=== PATIENT | female | born 1980 | race Caucasian/White ===

== ENCOUNTER 2017-01-07 08:21 | Emergency (ER) | payer OTHER ==
[2017-01-07 08:28] VITALS: BP 125/92; TEMP 99.3; BMI 28.0
[2017-01-07] MEDS ORDERED: TORADOL IM STA (08:32)
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
--- NOTE | 2017-01-07 10:10 | CT ---
EXAM: CT of the lumbar spine without contrast History: Back trauma. Comparison: Lumbar spine CT 04/04/2016 Technique: Multiplanar CT images through the lumbar spine were obtained without the administration of IV contrast Findings: No acute fracture or subluxation. Disc space heights are relatively preserved. Bony spinal canal i s not significantly compromised. No significant bony neural foraminal narrowing. Impression: No acute osseous abnormality of the lumbar spine.
--- NOTE | 2017-01-07 10:10 | CT ---
EXAM: CT chest without contrast. HISTORY: Initial presentation for left-sided rib pain following a fall. COMPARISON: None available. TECHNIQUE: Multiple axial images of the chest were obtained without intravenous contrast. Images w ere reformatted in the sagittal and coronal planes. FINDINGS: No anterior mediastinal fluid collections are seen. Heart size is normal. There is no p ericardial effusion. Ascending thoracic aorta measures approximately 3.9 cm maximum diameter. No p eriaortic hemorrhage identified. Evaluation for lymphadenopathy is limited due to lack of intraveno us contrast. Linear subsegmental atelectasis noted in the left lower lobe. A 0.3 cm right lower lobe nodule note d on axial image 42. Lungs are otherwise clear. No pleural effusion or pneumothorax identified. T here is mild superior endplate compression deformity of this T8 vertebral body without retropulsion. Minimal superior endplate compression deformity of L2 vertebral body noted with smooth margins. N o left-sided rib fracture identified. IMPRESSION: 1. Mild age indeterminate T8 superior endplate compression deformity. Consider MRI if further eval uation is needed. 2. No left rib fracture or acute intrathoracic abnormality. Mild left lower lobe subsegmental atel ectasis. 3. Right lower lobe micronodule which requires followup chest CT in 3 months. 4. Ascending thoracic aorta measures 3.9 cm diameter.
--- NOTE | 2017-01-07 10:25 | ED.PDOC ---
General ED Provider: Dr. KELLEY COOPER Chief Complaint: Fall Stated Complaint: neck back pain after a fall Time Seen by Physician: 08:30 (fell over a bail of hay) Mode of Arrival: Walk-In Information Source: Patient Exam Limitations: No limitations Primary Care Provider: HANSA DWYER Nursing and Triage Documentation Reviewed and Agree: Yes (fall today) Trauma/Injury Complaint Exam - Trauma Complaint/Exam Location of Pain or Injury: Reports: Other (back , neck) Mechanism of Injury: Reports: Fall Onset/Duration: this am Symptoms Are: Still present Timing of Treatment: Immediate Initial Severity: Moderate Current Severity: Moderate Character: Reports: Pressure Aggravating: Reports: Movement Alleviating: Reports: Rest Associated Signs and Symptoms: Reports: Bruising Related History: Reports: Similar episode : No Penetrating Injury Risk Factors: Reports: None Related Surgical History: Reports: None Nexus Low Risk Criteria: No evidence of intoxicat., No Altered LOC, No focal neuro deficit, No distracting injuries Glascow Coma Scale (see protocol): 15 Differential Diagnoses: Fracture, Sprain, Strain Review of Systems - Review Of Systems Constitutional: Reports: No symptoms Eyes: Reports: No symptoms Ears, Nose, Mouth, Throat: Reports: No symptoms Respiratory: Reports: No symptoms Cardiac: Reports: No symptoms GI: Reports: No symptoms : Reports: No symptoms Musculoskeletal: Reports: Back pain, Neck pain Skin: Reports: No symptoms Neurological: Reports: No symptoms Endocrine: Reports: No symptoms Hematologic/Lymphatic: Reports: No symptoms All Other Systems: Reviewed and Negative Past Medical History - Past Medical History Previously Healthy: Yes Endocrine: Reports: None Cardiovascular: Reports: None Respiratory: Reports: None Hematological: Reports: None Gastrointestinal: Reports: None Genitourinary: Reports: None Neuro/Psych: Reports: None Musculoskeletal: Reports: None Cancer: Reports: None Last Menstrual Period: NA - Surgical History General Surgical History: Reports: Hysterectomy, Appendectomy, Cholecystectomy - Family History Family History: Reports: Unknown - Social History Smoking Status: Current every day smoker, Heavy tobacco smoker Hx Substance Use: No Alcohol Screening: Occasionally - Immunizations Tetanus Shot up to Date: Yes Physical Exam - Physical Exam Appearance: Well-appearing, No pain distress, Well-nourished Eyes: JORGE LUIS, EOMI, Conjunctiva clear ENT: Ears normal, Nose normal, Oropharynx normal Respiratory: Airway patent, Breath sounds clear, Breath sounds equal, Respirations nonlabored Cardiovascular: RRR, Pulses normal, No rub, No murmur GI/: Soft, Nontender, No masses, Bowel sounds normal, No Organomegaly Musculoskeletal: Normal strength, ROM intact, No edema, No calf tenderness Skin: Warm, Dry, Normal color Neurological: Sensation intact, Motor intact, Reflexes intact, Cranial nerves intact, Alert, Oriented Psychiatric: Affect appropriate, Mood appropriate Interpretation - Radiology Interpretation Radiology Interpretation By: Radiologist Radiology Results: Positive (compression fracture of t8) Critical Care Note - Critical Care Note Total Time (mins): 0 Course - Course Orders, Labs, Meds: Orders Category Date Time Status Ketorolac Tromethamine [Toradol] MEDS 01/07/17 08:32 Discontinued 60 mg IM ONCE STA CT CERVICAL SPINE W/O CONTRAST Stat RADS 01/07/17 08:[address] CHEST W/O CONTRAST Stat RADS 01/07/17 08:[address] LUMBAR SPINE W/O CONTRAST Stat RADS 01/07/17 08:31 Completed Medications Discontinued Medications Generic Name Dose Route Start Last Admin Trade Name Freq PRN Reason Stop Dose Admin Ketorolac Tromethamine 60 mg 01/07/17 08:32 01/07/17 08:38 Toradol IM 01/07/17 08:33 60 mg ONCE STA Administration Vital Signs: Temp Pulse Resp BP Pulse Ox 01/07/17 08:23 99.3 F 113 H 20 125/92 H 98 Departure - Departure Time of Disposition: 10:25 Disposition: HOME SELF-CARE Discharge Problem: Neck pain, Wedge compression fracture of T8 vertebra Lumbar back pain Qualifiers: Chronicity: unspecified Instructions: Acute Low Back Pain (ED), Cervical Sprain (ED), Neck Pain (ED), Acute Neck Pain (ED), Thoracolumbar Fracture (ED) Condition: Good Pt referred to PMD for follow-up: No Additional Instructions: Please call your Family Physician as soon as possible to schedule a follow-up appointment. Allergies/Adverse Reactions: Allergies metoclopramide HCl [From Reglan] Adverse Reaction (Verified 01/07/17 08:23) naproxen Adverse Reaction (Verified 01/07/17 08:23) Home Medications: Ambulatory Orders Dicyclomine HCl [Bentyl] 20 mg PO TID 04/04/16 Estrogens, Conjugated [Premarin] 1.25 mg PO DAILY 04/04/16 Ranitidine HCl [Zantac] 300 mg PO BID 04/04/16 Nabumetone [Relafen] 500 mg PO BIDWM #6 tablet 01/07/17
== END 2017-01-07 11:12 | disposition home or self-care (01) ==
LOC: ED 08:21
DX: S22.060A Wedge compression fracture of T7-T8 vertebra, initial encounter for closed fracture (principal); M54.2 Cervicalgia; M54.5 Low back pain; F17.210 Nicotine dependence, cigarettes, uncomplicated; W01.0XXA Fall on same level from slipping, tripping and stumbling without subsequent striking against object, initial encounter
CPT/HCPCS: 96372; 99283

== ENCOUNTER 2017-04-27 13:42 | Emergency (ER) ==
[2017-04-27 13:51] VITALS: BP 125/83; TEMP 98.6; BMI 26.6
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
--- NOTE | 2017-04-27 14:21 | DI ---
Exam: Three views right shoulder Clinical indication: Fall with right shoulder pain and limited abduction. Findings: There are no fractures, dislocations or other significant bony abnormality. The visualized ribs are within normal limits. The visualized pulmonary parenchyma is unremarkable. Impression: Negative radiographs of the right shoulder.
--- NOTE | 2017-04-27 14:21 | DI ---
Exam: Two views right elbow. Clinical indication: Fall with right elbow pain. Findings: There is no right elbow effusion. There are no fractures, dislocations or other significant bony ab normalities. Impression: Negative radiographs of the right elbow.
--- NOTE | 2017-04-27 14:23 | DI ---
Exam: Three views of the right foot Clinical indication: Fall with right foot pain. Findings: There is no gross soft tissue abnormality. There are no fractures, dislocations, physeal injuries o r other significant bony abnormality. Impression: Negative radiographs of the right foot.
== END 2017-04-27 14:41 | disposition home or self-care (01) ==
LOC: ED 13:42
DX: S90.31XA Contusion of right foot, initial encounter (principal); S40.211A Abrasion of right shoulder, initial encounter; S50.311A Abrasion of right elbow, initial encounter; V86.99XA Unspecified occupant of other special all-terrain or other off-road motor vehicle injured in nontraffic accident, initial encounter; F17.210 Nicotine dependence, cigarettes, uncomplicated
CPT/HCPCS: 99283

== ENCOUNTER 2017-08-01 08:45 | Emergency (ER) ==
[2017-08-01 08:53] VITALS: BP 119/85; TEMP 98.1; BMI 25.1
[2017-08-01] MEDS ORDERED: TORADOL IM STA (09:02)
--- NOTE | 2017-08-01 09:05 | ED.PDOC ---
General ED Provider: Dr. MIMA LANGLEY Chief Complaint: Foot Pain/Injury Stated Complaint: Patients left foot was stepped by her horse yesterday, ever since its been hurting to walk and bend. has balckened area. Time Seen by Physician: 09:03 Mode of Arrival: Walk-In Information Source: Patient Primary Care Provider: SHAYNA CHANG Nursing and Triage Documentation Reviewed and Agree: Yes Musculoskeletal Complaint Exam - Ankle/Foot Complaint/Exam Location of Injury: Reports: Left Mechanism of Injury: Reports: Trauma Symptoms Are: Reports: Still present Onset of Pain: Reports: Immediate Initial Severity: Moderate Current Severity: Moderate Location: Reports: Discrete Character: Reports: Aching Alleviating: Reports: None Aggravating: Reports: Movement, Weight bearing Able to Bear Weight: Yes Associated Signs and Symptoms: Reports: Bruising. Denies: Swelling, Redness, Fever, Weakness, Numbness, Tingling Gout Risk Factors: Reports: None Related Surgical History: Reports: None Lower Extremity Findings: Present: Ecchymosis. Absent: Abnormal contour, Rotation Achilles Tendon Abnormality: No Tenderness: Present: Lateral malleolus, Midfoot, Metatarsals Limited Range of Motion: Present: Inversion, Eversion, Dorsiflexion, Plantarflexion Differential Diagnosis: Closed Fracture, Sprain Review of Systems - Review Of Systems Constitutional: Reports: No symptoms Eyes: Reports: No symptoms Ears, Nose, Mouth, Throat: Reports: No symptoms Respiratory: Reports: No symptoms Cardiac: Reports: No symptoms GI: Reports: No symptoms : Reports: No symptoms Musculoskeletal: Reports: Joint pain, Muscle pain Skin: Reports: No symptoms Neurological: Reports: No symptoms Endocrine: Reports: No symptoms Hematologic/Lymphatic: Reports: No symptoms All Other Systems: Reviewed and Negative Past Medical History - Past Medical History Previously Healthy: Yes Endocrine: Reports: None Cardiovascular: Reports: None Respiratory: Reports: None Hematological: Reports: None Gastrointestinal: Reports: GERD, Other (IBS) Genitourinary: Reports: None Neuro/Psych: Reports: None Musculoskeletal: Reports: None Cancer: Reports: Other (endometrial Ca) Last Menstrual Period: hysterectomy - Surgical History General Surgical History: Reports: Hysterectomy, Appendectomy, Cholecystectomy - Family History Family History: Reports: Unknown - Social History Smoking Status: Current every day smoker, Light tobacco smoker Smoking Cessation Counseling Time: > 3 min - 10 min Hx Substance Use: No Alcohol Screening: Occasionally Physical Exam - Physical Exam Appearance: Well-appearing, No pain distress, Well-nourished Eyes: JORGE LUIS, EOMI, Conjunctiva clear ENT: Ears normal, Nose normal, Oropharynx normal Respiratory: Airway patent, Breath sounds clear, Breath sounds equal, Respirations nonlabored Cardiovascular: RRR, Pulses normal, No rub, No murmur GI/: Soft, Nontender, No masses, Bowel sounds normal, No Organomegaly Musculoskeletal: No edema, No calf tenderness, Limited ROM, Limited strength Skin: Warm, Dry, Normal color Neurological: Sensation intact, Motor intact, Reflexes intact, Cranial nerves intact, Alert, Oriented Psychiatric: Affect appropriate, Mood appropriate Interpretation - Radiology Interpretation Radiology Interpretation By: Radiologist Radiology Results: Negative Critical Care Note - Critical Care Note Total Time (mins): 0 Course - Course Orders, Labs, Meds: Orders Category Date Time Status Ketorolac Tromethamine [Toradol] MEDS 08/01/17 09:02 Discontinued 30 mg IM ONCE STA ANKLE, LEFT MIN 3 VIEWS Stat RADS 08/01/17 09:02 Completed FOOT, LEFT 3 VIEWS Stat RADS 08/01/17 09:02 Completed Medications Discontinued Medications Generic Name Dose Route Start Last Admin Trade Name Freq PRN Reason Stop Dose Admin Ketorolac Tromethamine 30 mg 08/01/17 09:02 Toradol IM 08/01/17 09:03 ONCE STA Vital Signs: Temp Pulse Resp BP Pulse Ox 08/01/17 08:46 98.1 F 126 H 20 119/85 99 Departure - Departure Time of Disposition: 09:10 Disposition: HOME SELF-CARE Discharge Problem: Ankle sprain Qualifiers: Encounter type: initial encounter Involved ligament of ankle: unspecified ligament Laterality: left Qualified Code(s): S93.402A - Sprain of unspecified ligament of left ankle, initial encounter Instructions: Ankle Sprain (ED) Condition: Good Pt referred to PMD for follow-up: No Additional Instructions: Rest Prateek wrap If not better come back. Prescriptions: Tramadol HCl 50 mg PO BID #14 tablet Allergies/Adverse Reactions: Allergies metoclopramide HCl [From Reglan] Adverse Reaction (Verified 08/01/17 08:53) nabumetone [From Relafen] Adverse Reaction (Verified 08/01/17 08:53) breathing probs naproxen Adverse Reaction (Verified 08/01/17 08:53) Home Medications: Ambulatory Orders Dicyclomine HCl [Bentyl] 20 mg PO TID 04/04/16 Estrogens, Conjugated [Premarin] 1.25 mg PO DAILY 04/04/16 Ranitidine HCl [Zantac] 300 mg PO BID 04/04/16 Tramadol HCl 50 mg PO BID #14 tablet 08/01/17 Disposition Discussed With: Patient
--- NOTE | 2017-08-01 09:31 | DI ---
EXAM: Three views of the left ankle HISTORY: Left ankle injury and pain. COMPARISON: None FINDINGS: There is no cortical irregularity or displaced fracture. There is no dislocation. The cholo nt spaces are maintained. The soft tissues are normal. There is no lytic or blastic lesion. IMPRESSION: There is no cortical irregularity or displaced fracture of the left ankle.
--- NOTE | 2017-08-01 09:35 | DI ---
EXAM: Three views of the left foot HISTORY: Left foot injury and pain. COMPARISON: Left ankle x-ray 08/01/2017 FINDINGS: There is no cortical irregularity or displaced fracture of the left foot. Joint spaces are maintained. There is no lytic or blastic lesion. The soft tissues are unremarkable. IMPRESSION: No acute abnormality or displaced fracture of the left foot.
== END 2017-08-01 10:17 | disposition home or self-care (01) ==
LOC: ED 08:45
DX: S93.402A Sprain of unspecified ligament of left ankle, initial encounter (principal); W55.12XA Struck by horse, initial encounter; F17.210 Nicotine dependence, cigarettes, uncomplicated
CPT/HCPCS: 96372; 99283

== ENCOUNTER 2017-12-04 11:41 | Emergency (ER) ==
[2017-12-04 11:57] VITALS: BP 137/90; TEMP 99.1; BMI 23.6
--- NOTE | 2017-12-04 13:07 | DI ---
EXAM: LEFT HAND THREE VIEWS HISTORY: Hand trauma, unable to extend a third finger. FINDINGS / IMPRESSION: The third digit is completely flexed at the proximal interphalangeal joint [place] which limits the evaluation. No obvious joint dislocation or fracture is identified. Carpal bon es appear intact.
--- NOTE | 2017-12-04 13:16 | ED.PDOC ---
General ED Provider: Dr. KELLEY COOPER Chief Complaint: Hand Pain/Injury Stated Complaint: hand pain left side middle finger Time Seen by Physician: 12:00 Mode of Arrival: Walk-In Information Source: Patient Exam Limitations: No limitations Primary Care Provider: SHAYNA CHANG Nursing and Triage Documentation Reviewed and Agree: Yes Reviewed sepsis parameters & appropriate labs ordered?: Yes System Inflammatory Response Syndrome: Not Applicable Sepsis Protocol: For patient's 13 years and over: Temp is 96.8 and below OR 101 and greater Pulse >90 BPM Resp >20/minute Acutely Altered Mental Status Are patient's symptoms suggestive of a new infection, such as: -Pneumonia -Skin, Soft Tissue -Endocarditis -UTI -Bone, Joint Infection -Implantable Device -Acute Abdominal Infection -Wound Infection -Meningitis -Blood Stream Catheter Infection -Unknown System Inflammatory Response Syndrome: Not Applicable Musculoskeletal Complaint Exam - Hand/Wrist Complaint/Exam Location of Pain: Reports: Left, Hand, Digit #3 Mechanism of Injury: Reports: Trauma (stuck in the garbage disposable unable to extend middle finger ) Onset/Duration: 2 hrs ago Symptoms Are: Still present Onset of Pain: Reports: Hours Initial Severity: Moderate Current Severity: Moderate Location: Reports: Discrete Character: Reports: Aching (see above ) Alleviating: Reports: None Aggravating: Reports: None (see photos) Associated Signs and Symptoms: Denies: Swelling, Redness, Bruising, Fever, Weakness, Numbness, Tingling (abrasion left finger 3rd finger ) Dominant Hand: Right Related Surgical History: Reports: None Differential Diagnoses: Sprain Review of Systems - Review Of Systems Constitutional: Reports: No symptoms Eyes: Reports: No symptoms Ears, Nose, Mouth, Throat: Reports: No symptoms Respiratory: Reports: No symptoms Cardiac: Reports: No symptoms GI: Reports: No symptoms : Reports: No symptoms Musculoskeletal: Reports: Other (left 3rd finger pain unable to extend finger as seen on photos) Skin: Reports: No symptoms Neurological: Reports: No symptoms Endocrine: Reports: No symptoms Hematologic/Lymphatic: Reports: No symptoms All Other Systems: Reviewed and Negative Past Medical History - Past Medical History Previously Healthy: Yes Endocrine: Reports: None Cardiovascular: Reports: None Respiratory: Reports: None Hematological: Reports: None Gastrointestinal: Reports: GERD, Other (IBS) Genitourinary: Reports: None Neuro/Psych: Reports: None Musculoskeletal: Reports: None Cancer: Reports: Other (endometrial Ca) Last Menstrual Period: na - Surgical History General Surgical History: Reports: Hysterectomy, Appendectomy, Cholecystectomy - Family History Family History: Reports: Unknown - Social History Smoking Status: Current some day smoker Hx Substance Use: No Alcohol Screening: Occasionally - Immunizations Tetanus Shot up to Date: Yes Physical Exam - Physical Exam Appearance: Well-appearing, No pain distress, Well-nourished Eyes: JORGE LUIS, EOMI, Conjunctiva clear ENT: Ears normal, Nose normal, Oropharynx normal Respiratory: Airway patent, Breath sounds clear, Breath sounds equal, Respirations nonlabored Cardiovascular: RRR, Pulses normal, No rub, No murmur GI/: Soft, Nontender, No masses, Bowel sounds normal, No Organomegaly Musculoskeletal: Limited ROM Skin: Warm, Dry, Normal color Neurological: Sensation intact, Motor intact, Reflexes intact, Cranial nerves intact, Alert, Oriented Psychiatric: Affect appropriate, Mood appropriate Interpretation - Radiology Interpretation Radiology Interpretation By: Radiologist Radiology Results: No acute changes Critical Care Note - Critical Care Note Total Time (mins): 0 Course - Course Orders, Labs, Meds: Orders Category Date Time Status HAND, LEFT 3 VIEWS Stat RADS 12/04/17 12:04 Completed Vital Signs: Temp Pulse Resp BP Pulse Ox 12/04/17 11:44 99.1 F 134 H 20 137/90 97 Departure - Departure Time of Disposition: 13:16 Disposition: HOME SELF-CARE Discharge Problem: Hand pain Instructions: Finger Sprain (ED) Condition: Good Pt referred to PMD for follow-up: Yes IPMP verified?: Yes Additional Instructions: Please call your Family Physician as soon as possible to schedule a follow-up appointment.i have strong SUSPISION TO HAVE TENDON TEAR Prescriptions: Hydrocodone/Acetaminophen [[place] 10-325 Tablet] 1 each PO Q8HR #12 tablet Allergies/Adverse Reactions: Allergies metoclopramide HCl [From Reglan] Adverse Reaction (Verified 09/09/17 12:09) nabumetone [From Relafen] Adverse Reaction (Verified 09/09/17 12:09) breathing probs naproxen Adverse Reaction (Verified 09/09/17 12:09) Home Medications: Ambulatory Orders Dicyclomine HCl [Bentyl] 20 mg PO TID 04/04/16 Estrogens, Conjugated [Premarin] 1.25 mg PO DAILY 05/27/16 Ranitidine HCl [Zantac] 300 mg PO BID 04/04/16 Hydrocodone/Acetaminophen [[place] 10-325 Tablet] 1 each PO Q8HR #12 tablet
== END 2017-12-04 13:50 | disposition home or self-care (01) ==
LOC: ED 11:41
DX: S69.92XA Unspecified injury of left wrist, hand and finger(s), initial encounter (principal); W31.89XA Contact with other specified machinery, initial encounter
CPT/HCPCS: 99283

== ENCOUNTER 2018-08-11 09:51 | Emergency (ER) ==
[2018-08-11 09:56] VITALS: BP 132/82; TEMP 97.9; BMI 27.1
--- NOTE | 2018-08-11 10:37 | DI ---
Exam: Three views of the left foot. Comparison: 11/14/2017. Reason for exam: Injury. FINDINGS: No acute fracture or malalignment. The joint spaces appear well maintained. No unexplain ed calcific soft tissue density or radiopaque retained foreign body. Impression: No acute fracture or malalignment in the left foot.
--- NOTE | 2018-08-11 10:37 | DI ---
EXAM: Three views of the left ankle HISTORY: Left ankle injury. COMPARISON: Left foot x-rays same day and left ankle x-ray 08/01/2017 FINDINGS: The joint spaces maintained. There is no lytic or blastic lesion. There is no cortical ir regularity or displaced fracture. The hind foot structures are normal. The soft tissues are normal. IMPRESSION: No acute abnormality or displaced fracture of the left ankle.
--- NOTE | 2018-08-11 10:55 | ED.PDOC ---
General ED Provider: Dr. KELLEY COOPER Chief Complaint: Foot Pain/Injury Stated Complaint: foot and ankle injury Time Seen by Physician: 10:00 (seen with aida at all times ) Mode of Arrival: Walk-In Information Source: Patient Exam Limitations: No limitations Primary Care Provider: SHAYNA CHANG Nursing and Triage Documentation Reviewed and Agree: Yes Does patient meet sepsis criteria?: No If yes, has appropriate treatment been initiated?: No System Inflammatory Response Syndrome: Not Applicable Sepsis Protocol: For patient's 13 years and over: Temp is 96.8 and below OR 101 and greater Pulse >90 BPM Resp >20/minute Acutely Altered Mental Status Are patient's symptoms suggestive of a new infection, such as: -Pneumonia -Skin, Soft Tissue -Endocarditis -UTI -Bone, Joint Infection -Implantable Device -Acute Abdominal Infection -Wound Infection -Meningitis -Blood Stream Catheter Infection -Unknown Musculoskeletal Complaint Exam - Ankle/Foot Complaint/Exam Location of Injury: Reports: Left, Ankle, Foot Mechanism of Injury: Reports: Trauma (fall 1 day ago over a pet ) Onset/Duration: 1 day Symptoms Are: Reports: Still present Onset of Pain: Reports: Immediate Initial Severity: Moderate Current Severity: Moderate Location: Reports: Discrete Character: Reports: Aching Alleviating: Reports: Rest, Position Aggravating: Reports: Movement, Weight bearing, Prolonged standing Able to Bear Weight: Yes Associated Signs and Symptoms: Reports: Swelling, Redness, Bruising. Denies: Fever, Weakness, Numbness, Tingling Gout Risk Factors: Reports: None Related Surgical History: Reports: None Lower Extremity Findings: Present: Swelling, Ecchymosis Achilles Tendon Abnormality: No Tenderness: Present: Medial malleolus, Lateral malleolus, Midfoot Limited Range of Motion: Present: Inversion, Eversion Differential Diagnosis: Closed Fracture, Sprain, Strain Review of Systems - Review Of Systems Constitutional: Reports: No symptoms Eyes: Reports: No symptoms Ears, Nose, Mouth, Throat: Reports: No symptoms Respiratory: Reports: No symptoms Cardiac: Reports: No symptoms GI: Reports: No symptoms : Reports: No symptoms Musculoskeletal: Reports: Joint pain (foot and ankle) Skin: Reports: No symptoms Neurological: Reports: No symptoms Endocrine: Reports: No symptoms Hematologic/Lymphatic: Reports: No symptoms All Other Systems: Reviewed and Negative Past Medical History - Past Medical History Previously Healthy: Yes Endocrine: Reports: None Cardiovascular: Reports: None Respiratory: Reports: None Hematological: Reports: None Gastrointestinal: Reports: GERD, Other (IBS) Genitourinary: Reports: None Neuro/Psych: Reports: None Musculoskeletal: Reports: None Cancer: Reports: Other (endometrial Ca) Last Menstrual Period: hysterectomy - Surgical History General Surgical History: Reports: Hysterectomy, Appendectomy, Cholecystectomy - Family History Family History: Reports: Unknown - Social History Smoking Status: Current every day smoker, Light tobacco smoker Hx Substance Use: No Alcohol Screening: Occasionally Physical Exam - Physical Exam Appearance: Well-appearing, No pain distress, Well-nourished Eyes: JORGE LUIS, EOMI, Conjunctiva clear ENT: Ears normal, Nose normal, Oropharynx normal Respiratory: Airway patent, Breath sounds clear, Breath sounds equal, Respirations nonlabored Cardiovascular: RRR, Pulses normal, No rub, No murmur GI/: Soft, Nontender, No masses, Bowel sounds normal, No Organomegaly Musculoskeletal: Limited ROM Skin: Warm, Dry (brused left ankle ) Neurological: Sensation intact, Motor intact, Reflexes intact, Cranial nerves intact, Alert, Oriented Psychiatric: Affect appropriate, Mood appropriate Interpretation - Radiology Interpretation Radiology Interpretation By: Radiologist Radiology Results: No acute changes Critical Care Note - Critical Care Note Total Time (mins): 0 Course - Course Orders, Labs, Meds: Orders Category Date Time Status ANKLE, LEFT MIN 3 VIEWS Stat RADS 08/11/18 10:14 Completed FOOT, LEFT 3 VIEWS Stat RADS 08/11/18 10:14 Completed Vital Signs: Temp Pulse Resp BP Pulse Ox 08/11/18 09:51 97.9 F 117 H 16 132/82 99 Departure - Departure Time of Disposition: 10:56 Disposition: HOME SELF-CARE Discharge Problem: Sprain of foot, right Qualifiers: Encounter type: initial encounter Qualified Code(s): S93.601A - Unspecified sprain of right foot, initial encounter Right ankle sprain Qualifiers: Encounter type: initial encounter Involved ligament of ankle: unspecified ligament Qualified Code(s): S93.401A - Sprain of unspecified ligament of right ankle, initial encounter Instructions: Foot Sprain (ED) Condition: Good Pt referred to PMD for follow-up: Yes IPMP verified?: No Additional Instructions: Please call your Family Physician as soon as possible to schedule a follow-up appointment. Allergies/Adverse Reactions: Allergies metoclopramide HCl [From Reglan] Adverse Reaction (Verified 08/11/18 09:59) nabumetone [From Relafen] Adverse Reaction (Verified 08/11/18 09:59) breathing probs naproxen Adverse Reaction (Verified 08/11/18 09:59) Home Medications: Ambulatory Orders Ranitidine HCl [Zantac] 300 mg PO BID 04/04/16 Hydrocodone/Acetaminophen [[place] 10-325 Tablet] 1 each PO Q8HR #12 tablet Disposition Discussed With: Patient
== END 2018-08-11 11:18 | disposition home or self-care (01) ==
LOC: ED 09:51
DX: S93.402A Sprain of unspecified ligament of left ankle, initial encounter (principal); S93.602A Unspecified sprain of left foot, initial encounter; W01.0XXA Fall on same level from slipping, tripping and stumbling without subsequent striking against object, initial encounter; F17.210 Nicotine dependence, cigarettes, uncomplicated
CPT/HCPCS: 99283

== ENCOUNTER 2018-09-05 09:58 | Emergency (ER) ==
[2018-09-05 10:02] VITALS: BP 130/92; TEMP 98.4; BMI 26.6
--- NOTE | 2018-09-05 10:22 | ED.PDOC ---
General ED Provider: Dr. JESSI BANSAL Chief Complaint: Hand Pain/Injury Stated Complaint: Lt Hand Injury. States accidently shut her lt hand under trunk lid when closing it. Davidley shut, locking in place necessitating unlocking to remove her hand. Applied ice pack and took oral NSAID -Ibuprofen 800 mg earlier this AM.(denies allergy to NSAID) Time Seen by Physician: 10:05 Mode of Arrival: Walk-In Information Source: Patient Exam Limitations: No limitations Primary Care Provider: SHAYNA CHANG Nursing and Triage Documentation Reviewed and Agree: Yes Does patient meet sepsis criteria?: No System Inflammatory Response Syndrome: Not Applicable Sepsis Protocol: For patient's 13 years and over: Temp is 96.8 and below OR 101 and greater Pulse >90 BPM Resp >20/minute Acutely Altered Mental Status Are patient's symptoms suggestive of a new infection, such as: -Pneumonia -Skin, Soft Tissue -Endocarditis -UTI -Bone, Joint Infection -Implantable Device -Acute Abdominal Infection -Wound Infection -Meningitis -Blood Stream Catheter Infection -Unknown Musculoskeletal Complaint Exam - Hand/Wrist Complaint/Exam Location of Pain: Reports: Left, Hand, Digit #4, Digit #5 Mechanism of Injury: Reports: Trauma Onset/Duration: Yesterday Symptoms Are: Still present Initial Severity: Severe Current Severity: Moderate Location: Reports: Diffuse Character: Reports: Sharp, Aching, Throbbing Alleviating: Reports: Elevation, Cold Aggravating: Reports: Movement Associated Signs and Symptoms: Reports: Swelling, Bruising, Weakness, Numbness Dominant Hand: Right Related Surgical History: Reports: None Hand/Wrist Findings: Present: Ecchymosis Tenderness: Present: Metacarpal, Phalanx Differential Diagnoses: Sprain, Strain, Other (digital fracture) Review of Systems - Review Of Systems Constitutional: Reports: No symptoms Eyes: Reports: No symptoms Ears, Nose, Mouth, Throat: Reports: No symptoms Respiratory: Reports: No symptoms Cardiac: Reports: No symptoms GI: Reports: No symptoms : Reports: No symptoms Musculoskeletal: Reports: No symptoms, Other (Hand Injury-Slammed lt hand under trunk lift) Skin: Reports: No symptoms Neurological: Reports: No symptoms Endocrine: Reports: No symptoms Hematologic/Lymphatic: Reports: No symptoms All Other Systems: Reviewed and Negative Past Medical History - Past Medical History Previously Healthy: Yes Endocrine: Reports: None Cardiovascular: Reports: None Respiratory: Reports: None Hematological: Reports: None Gastrointestinal: Reports: GERD, Other (IBS) Genitourinary: Reports: None Neuro/Psych: Reports: None Musculoskeletal: Reports: None Cancer: Reports: Other (endometrial Ca) Last Menstrual Period: n/a - Surgical History General Surgical History: Reports: Hysterectomy, Appendectomy, Cholecystectomy - Family History Family History: Reports: Unknown - Social History Smoking Status: Current every day smoker, Light tobacco smoker Hx Substance Use: No Alcohol Screening: Occasionally Physical Exam - Physical Exam Appearance: Well-appearing, No pain distress, Well-nourished Eyes: JORGE LUIS, EOMI, Conjunctiva clear ENT: Ears normal, Nose normal, Oropharynx normal Respiratory: Airway patent, Breath sounds clear, Breath sounds equal, Respirations nonlabored Cardiovascular: RRR, Pulses normal, No rub, No murmur GI/: Soft, Nontender, No masses, Bowel sounds normal, No Organomegaly Musculoskeletal: Normal strength, ROM intact, No edema, No calf tenderness, Limited strength (Lt hand), Edema Skin: Warm, Dry, Normal color Neurological: Sensation intact, Motor intact, Reflexes intact, Cranial nerves intact, Alert, Oriented Psychiatric: Affect appropriate, Mood appropriate Critical Care Note - Critical Care Note Total Time (mins): 0 Course - Course Orders, Labs, Meds: Orders Category Date Time Status HAND, LEFT 3 VIEWS Stat RADS 09/05/18 10:28 Completed Vital Signs: Temp Pulse Resp BP Pulse Ox 09/05/18 09:58 98.4 F 120 H 16 130/92 H 98 Departure - Departure Time of Disposition: 11:05 Disposition: HOME SELF-CARE Discharge Problem: Contusion of hand including fingers, Strain of left wrist Instructions: Contusion in Adults (ED), Hand Sprain (ED) Condition: Good Pt referred to PMD for follow-up: Yes IPMP verified?: No Additional Instructions: Prateek Wrap and velcro splint Ibuprofen 800 mg 3 time daily ICE,/.ELEVATE Rx [place] for severe pain Prescriptions: Hydrocodone/Acetaminophen [[place] 10-325 Tablet] 1 each PO Q6-8H PRN #15 tablet PRN Reason: Hand Pain Allergies/Adverse Reactions: Allergies metoclopramide HCl [From Reglan] Adverse Reaction (Verified 09/05/18 10:01) nabumetone [From Relafen] Adverse Reaction (Verified 09/05/18 10:01) breathing probs naproxen Adverse Reaction (Verified 09/05/18 10:01) Home Medications: Ambulatory Orders Ranitidine HCl [Zantac] 300 mg PO BID 04/04/16 Dicyclomine HCl [Bentyl] 10 mg PO PRN PRN 09/05/18 Estrogens, Conjugated [Premarin] 1.25 mg PO DAILY 09/05/18 Hydrocodone/Acetaminophen [[place] 10-325 Tablet] 1 each PO Q6-8H PRN #15 tablet 09/05/18 Disposition Discussed With: Patient
--- NOTE | 2018-09-05 10:53 | DI ---
Exam: Three views of the left hand. Comparison: 12/04/2017. Reason for exam: Trauma. FINDINGS: No acute fracture or dislocation. The joint spaces are well maintained. No unexplained c alcific soft tissue density or radiopaque retained foreign body. Impression: No acute fracture or dislocation in the left hand
== END 2018-09-05 11:42 | disposition home or self-care (01) ==
LOC: ED 09:58
DX: S60.222A Contusion of left hand, initial encounter (principal); S66.912A Strain of unspecified muscle, fascia and tendon at wrist and hand level, left hand, initial encounter; W23.0XXA Caught, crushed, jammed, or pinched between moving objects, initial encounter; F17.210 Nicotine dependence, cigarettes, uncomplicated
CPT/HCPCS: 99283

== ENCOUNTER 2018-09-23 09:56 | Emergency (ER) ==
[2018-09-23 10:01] VITALS: BP 137/95; TEMP 98.1; BMI 27.0
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
--- NOTE | 2018-09-23 10:42 | DI ---
EXAM: Three views of the right hand HISTORY: Pain after dog bite the third finger. COMPARISON: Right finger x-ray 10/06/2017 FINDINGS: There is a ring on the fourth finger. There is no cortical irregularity or displaced fract ure of the right hand. The joint space are maintained. Focal evaluation of the third digit demonstr ates no cortical irregularity or periosteal reaction. The soft tissues are normal. IMPRESSION: No acute abnormality or fracture of the right hand or third digit.
== END 2018-09-23 11:45 | disposition home or self-care (01) ==
LOC: ED 09:56
DX: S61.252A Open bite of right middle finger without damage to nail, initial encounter (principal); S61.051A Open bite of right thumb without damage to nail, initial encounter; S61.250A Open bite of right index finger without damage to nail, initial encounter; F17.210 Nicotine dependence, cigarettes, uncomplicated; W54.0XXA Bitten by dog, initial encounter
CPT/HCPCS: 99283